=== PATIENT | male | born 1990 | race Caucasian/White ===

== ENCOUNTER 2022-09-10 08:03 | Inpatient (IN) | payer SELFPAY ==
[2022-09-10 08:04] VITALS: BP 154/111; PULSE 96; RESP 14; TEMP 36.1; O2SAT 97; BMI 42.2
--- NOTE | 2022-09-10 08:35 | RAD_ITS ---
STUDY: X-RAY - LEFT TIBIA AND FIBULA REASON FOR EXAM: Male, 32 years old. Cellulitis TECHNIQUE: 2 view(s) of the tibia and fibula were obtained. COMPARISON: None. FINDINGS: There is no evidence of fracture or dislocation. There are no significant degenerative changes. There are no radiodense foreign bodies. There is diffuse soft tissue swelling noted. There is no soft tissue air. RAD/Tibia & Fibula 2 Views IMPRESSION: No fracture or dislocation in the left tibia or fibula. Diffuse soft tissue swelling, consistent with cellulitis. No soft tissue air. Electronically Signed: Adithya Grider MD at 9:15 EDT ,
--- NOTE | 2022-09-10 08:38 | NURSING ---
NO OLD EKGS
[2022-09-10] MEDS: 0.9% Normal Saline 1,000 ML 1000 ML IV (08:43)
[2022-09-10] MEDS: Ondansetron 4 MG/2 ML Vial IV (08:44)
[2022-09-10] MEDS: Morphine 4 MG/ML Syringe IV (08:44)
--- NOTE | 2022-09-10 08:50 | RAD_ITS ---
STUDY: X-RAY CHEST REASON FOR EXAM: Male, 32 years old. Chest pain TECHNIQUE: Frontal view of the chest COMPARISON: None. FINDINGS: The lungs are clear. There are no pleural effusions. There is no pneumothorax. The heart is normal in size. The visualized osseous structures are within normal limits. RAD/Chest 1 View (Portable) IMPRESSION: No acute thoracic pathology. Electronically Signed: Adithya Grider MD at 9:15 EDT ,
[2022-09-10 08:57] LABS: Absolute Lymphocyte Count 0.89 X10^3/uL (0.83-4.51); Absolute Neutrophil Count 6.5 X10^3/uL (2.0-7.7); Basophil# 0.03 X10^3/uL; Basophil% 0.4 % (0-1); Eosinophil# 0.05 X10^3/uL; Eosinophils% 0.6 % (0-5); Hematocrit 43.8 % (40-54); Hemoglobin 15.5 g/dL (13.0-16.5); Lymphocyte # 0.89 X10^3/ul (0.83-4.51); Lymphocyte % 10.9 % (19-41); Mean Corp Hgb Conc 35.4 g/dL (32-36); Mean Corpuscular Hgb 31.4 pg (27.0-32.0); Mean Corpuscular Volume 88.8 fL (80-94); Mean Platelet Vol. 9.8 fl (6.2-12.0); Monocyte# 0.67 X10^3/uL; Monocyte% 8.2 % (0-10); NRBC Flagged by Analyzer 0 % (0-5); Neutrophil # 6.52 X10^3/uL (2.7-7.7); Neutrophil % 79.4 % (47-70); Platelet Count 200 K/mm3 (150-450); RBC Distribution Width CV 12.1 % (11.6-14.6); RBC Distribution Width SD 39.5 fl (35.1-43.9); Red Blood Count 4.93 M/mm3 (4.6-6.2); White Blood Count 8.2 K/mm3 (4.4-11.0)
[2022-09-10 09:13] LABS: Anion Gap 6 (5-15); BUN 6 mg/dL (7-18); BUN/Creat Ratio 6.6 RATIO (10-20); Calcium,Total 9.1 mg/dL (8.5-10.1); Chloride 101 mmol/L (98-107); Creatinine, Serum 0.91 mg/dL (0.70-1.30); EST Glomerular Filtration Rate 103 mL/min (>60); Est Glom Filt Rate - Afr Amer 124 mL/min (>60); Estimated Creatinine Clearance 113.79 ml/min; Glucose 113 mg/dL (74-106); Potassium 2.9 mmol/L (3.5-5.1); Sodium Level 134 mmol/L (136-145); Troponin-I HS (w/2H Reflex) 3 pg/mL (3.0-78.0)
[2022-09-10 09:21] LABS: Erythrocyte Sedimentation Rate 34 mm/hr (0-20)
--- NOTE | 2022-09-10 09:32 | NURSING ---
DR HERRERA FOR DR SAINZ
--- NOTE | 2022-09-10 09:33 | CT_ITS ---
HISTORY: infection. TECHNIQUE: Helically acquired images were obtained of the left lower extremity from the hip to the foot without after the intravenous administration of contrast. 2-D reformats were performed by the technologist. A radiation dose optimization technique was used for this scan. 1138 images. COMPARISON: XR same day. FINDINGS: BONES: No acute fracture. No cortical erosion to suggest osteomyelitis identified. Scattered small bone islands of the knee and ankle. JOINT SPACES: No dislocation. Preservation of the joint spaces. SOFT TISSUES: Mildly enlarged left groin lymph nodes measuring up to 1.3 x 2.3 cm, likely reactive. No subcutaneous emphysema or air in the deep fascial soft tissues. Venous varicosities noted. Mild subcutaneous edema of the knee with moderate subcutaneous edema and skin thickening extending to the leg, ankle, and dorsum of the foot. Mild ill-defined fluid measuring up to 9 mm x 4.4 cm in the posterior deep subcutaneous soft tissues without rim enhancement to suggest abscess. CT/Extremity Lower WITH Contrast IMPRESSION: Cellulitis of the left lower extremity as above. Electronically Signed: Chery Mendez MD at 11:33 EDT ,
--- NOTE | 2022-09-10 09:49 | EX.ED.DYSGE1 ---
HPI History of Present Illness Chief Complaint: Cellulitis Narrative Narrative: 32-year-old male with left lower leg cellulitis. He states he was seen at [facility] on the when he had an area of rash on the left posterior foot. At that time he had actually complained of some groin pain as well. He states that they tested him for syphilis, gonorrhea, chlamydia. He states he was also tested for HIV. He does not have any dysuria or urethral drainage. He just told them that he was having trouble making urine. He does step same thing to me except he states he is not eating and drinking much but he does not feel well. Patient states since then the rash has spread up his leg and it is almost circumferential now. There is very dark red area in the center of the tibia and then more light red around the back. He states is hard to walk and has been using crutches. He has not had a fever that he knows of. He does not remember any kind of wound that started other than this rash on his ankle. Denies any injury. No history of MRSA. He states he does not know if it is anything significant but has been feeling a little bit short of breath as well. Has some chest tightness as well. He thinks it might be anxiety over his leg but he is not sure. No cardiac history. He states that when he was at the other facility few days ago they did do a DVT study on his lower extremities and this was negative. No history of DVT or PE. [facility] Medical History no medical history Home Medications acetaminophen 325 mg tablet (Tylenol) 650 mg PO Q4H PRN Pain 09/10/22 [History Last Taken 09/09/22] ibuprofen 200 mg tablet 400 mg PO Q6H PRN Pain 09/10/22 [History Last Taken 09/07/22] Allergy/AdvReac Type Severity Reaction Status Date / Time No Known Allergies Allergy Verified 09/10/22 08:04 Social History Smoking Status: Current every day smoker tobacco type: cigarettes ROS ROS ED Constitutional Constitutional ED: Denies chills or fever(s) Eyes Eyes: Denies change in vision or other ENT ENT ED: Denies rhinorrhea or sore throat Cardiovascular Cardiovascular: Denies chest pain or palpitations Respiratory/Chest Respiratory/Chest: Reports dyspnea; Denies cough Gastrointestinal Gastrointestinal: Reports nausea Genitourinary Genitourinary ED: Denies dysuria Musculoskeletal Musculoskeletal: Denies arthralgias or back pain Integumentary Reports rash Neurologic Neurologic: Denies headache(s) Psychiatric Psychiatric: Denies anxiety EXAM Physical Exam Const Vital Signs: 09/10/22 08:04 09/10/22 08:35 09/10/22 10:00 Temperature 97 F L 97.8 F Temperature Source Temporal Oral Pulse Rate 96 70 Respiratory Rate 14 17 Blood Pressure 154/111 H 133/89 H Blood Pressure Mean 125 103 Pulse Ox 97 97 Oxygen Delivery Method Room Air Room Air Room Air Positive well nourished General Appearance ED: NAD HEENT Reports moist mucous membranes Chest Wall inspection of chest normal and palpation of chest normal Resp normal respiratory effort and clear to auscultation bilaterally Extremity Extremity Narrative: Deep red rash extending from the tibial region anteriorly in the ankle up to just inferior to the knee. There is deep rest raised vesicles. Extending laterally from this is red indurated tissue. There is increased warmth here. No crepitance. Neuro oriented x3 and CN's II-XII intact bilaterally Psych mental status grossly normal Skin Skin Narrative: As noted above MDM MDM MDM Narrative Medical decision making narrative: Patient presenting with cellulitis on the left leg. He is also stating that he is having some shortness of breath and tightness. He believes this is anxiety. No cardiac history. He had recent DVT studies which were negative. Differential includes pneumonia, ACS, anxiety. His lower extremity is nearly circumferential cellulitis so I think he will need to be admitted. I will obtain an EKG and high-sensitivity troponin to rule out ischemic causes. Chest x-ray to rule out pneumonia. CBC to assess white blood cell count. BMP to assess renal function and electrolytes. ESR and CRP inflammatory markers were also be obtained. X-ray of the left tibia was obtained. On my interpretation this shows diffuse soft tissue swelling without subcutaneous air. CBC does not show a leukocytosis. BMP shows normal renal function and potassium is low at 2.9 which will be repleted orally. ESR 34 and CRP 106. Wound culture was obtained. Patient is given vancomycin and Zosyn. Discussed with hospitalist for admission. She requested CT be done of the leg. This is ordered. Chest x-ray on my interpretation shows no acute cardiopulmonary process. Radiologist are persistent agrees. High-sensitivity troponin is 3. I do not believe he needs a delta troponin. CT of the lower extremity shows cellulitis. Patient admitted in stable condition. Impression: 1. Chest pain 2. Shortness of breath 3. Left lower extremity cellulitis Lab Data Attestation: I reviewed the patient's lab results. Labs: Laboratory Results - last 24 hr 09/10/22 09/10/22 08:45 08:45 WBC 8.2 RBC 4.93 Hgb 15.5 Hct 43.8 MCV 88.8 MCH 31.4 MCHC 35.4 RDW Std Deviation 39.5 RDW Coeff of Bere 12.1 Plt Count 200 MPV 9.8 Immature Gran % (Auto) 0.500 Neut % (Auto) 79.4 H Lymph % (Auto) 10.9 L [place] % (Auto) 8.2 Eos % (Auto) 0.6 Baso % (Auto) 0.4 Absolute Neuts (auto) 6.5 Absolute Lymphs (auto) 0.89 Nucleated RBC % 0 ESR 34 H Sodium 134 L Potassium 2.9 L Chloride 101 Carbon Dioxide 27.0 Anion Gap 6 BUN 6 L Creatinine 0.91 Estim Creat Clear Calc 113.79 Est GFR (MDRD) Af Amer 124 Est GFR (MDRD) Non-Af 103 BUN/Creatinine Ratio 6.6 L Glucose 113 H Calcium 9.1 Troponin I High Sens 3 C-React Prot Ext Range 106.00 H Radiography Diagnostic Testing: Clinical Impression(s) from Imaging Studies Tibia/Fibula X-Ray 09/10/22 08:35 IMPRESSION: No fracture or dislocation in the left tibia or fibula. Diffuse soft tissue swelling, consistent with cellulitis. No soft tissue air. Electronically Signed: Adithya Grider MD at 9:15 EDT , Chest X-Ray 09/10/22 08:50 IMPRESSION: No acute thoracic pathology. Electronically Signed: Adithya Grider MD at 9:15 EDT , Lower Extremity CT 09/10/22 09:33 IMPRESSION: Cellulitis of the left lower extremity as above. Electronically Signed: Chery Mendez MD at 11:33 EDT , Discharge Plan Disposition Disposition: Acute Care Hospital [facility] Discharge Date/Time: 09/10/22 11:11
[2022-09-10 10:00] VITALS: BP 133/89; PULSE 70; RESP 17; TEMP 36.6; O2SAT 97
[2022-09-10 10:53] LABS: Reflex Troponin-HS? (from REC) Y
[2022-09-10 11:07] VITALS: BP 136/104; PULSE 87; RESP 20; TEMP 36.6; O2SAT 98
[2022-09-10 11:29] LABS: Troponin-I HS 4 pg/mL (3.0-78.0)
[2022-09-10 11:33] VITALS: BMI 42.3
--- NOTE | 2022-09-10 11:56 | HP.PCM.HOS_ITS ---
HPI - General General Date of Admission: 09/10/22 Date of Service: 09/10/22 Chief Complaint: Left lower leg pain and swelling HPI Narrative SHADY FLORES, is a 32 M who presented to the emergency department at [facility] on 09/10/2022 with a chief complaint of left lower extremity redness and swelling that is worsening. Patient states symptoms started last with very mild erythema in his leg that was minimally distributed. He went to an urgent care with [facility] up in the [facility] and they felt that that was a rash so they started topical steroids. This progressively worsened since that time and become more diffusely spread with worsening swelling, pain, and erythema. It started in his distal leg and is now spread up into but just above his knee. He had some associated chills on and Friday but these have since resolved. He currently is experiencing some intermittent nausea and decreased p.o. intake due to this along with pain in his left lower extremity. The pain is so significant at this point he is using crutches for ambulation. The patient states he has had previous cellulitis in this leg that was not quite as severe as it is now but did require ambulation with crutches in 2018. He does not remember the exact circumstances of that situation. Vital signs on presentation showed temperature of 97.8, blood pressure 136/104, heart rate 87, respiratory 20, oxygen saturations 98% on room air. His CBC was unremarkable however his differential showed a left shift with a 79.4% neutrophilia. His sed rate was elevated at 34. CRP was 106. Sodium was slightly low at 134. His potassium was 2.9. Renal function is unremarkable. Glucose was slightly elevated 113 and the patient does not have any history of diabetes. Cardiac enzymes were cycled and were unremarkable. X-ray of the distal left lower extremity shows no fracture dislocation but did demonstrate soft tissue swelling consistent with cellulitis but no soft tissue air. CT of the left lower extremity showed inguinal lymphadenopathy that is suspected to be reactive along with mild subcutaneous edema at the knee with moderate subcutaneous edema and skin thickening in the distal leg down to the dorsum of the foot. There is also mild L identified fluid measuring 9 mm x 4.4 cm in the posterior deep subcutaneous soft tissues without rim-enhancing to suggest abscess. This imaging was reviewed with general surgery and they feel this is inflammatory fluid collection and not abscess and we will continue to monitor this clinically. Chest x-ray was unremarkable. In the emergency department blood cultures were obtained and a culture of one of the blisters was obtained. He was started on vancomycin and Zosyn and admitted to the medical floor. [facility] Medical History Anxiety Depression GERD (gastroesophageal reflux disease) Migraines Medical History no medical history Home Medications acetaminophen 325 mg tablet (Tylenol) 650 mg PO Q4H PRN Pain 09/10/22 [History Last Taken 09/09/22] ibuprofen 200 mg tablet 400 mg PO Q6H PRN Pain 09/10/22 [History Last Taken 09/07/22] Allergy/AdvReac Type Severity Reaction Status Date / Time No Known Allergies Allergy Verified 09/10/22 08:04 no significant family history no surgical history Social History (Updated 09/10/22 @ 12:[address] Shiloh Billings DO) current occupation: Patient is currently unemployed and recently moved to the area Smoking Status: Current every day smoker tobacco type: cigarettes alcohol intake: never substance use type: does not use ROS Constitutional Constitutional: Reports chills and malaise; Denies anorexia, change in weight, fatigue, fever(s), night sweats, weakness or other Eyes Eyes: Denies blurry vision, change in eye color, change in vision, discharge from eye(s), double vision, erythema, eye pain, loss of vision or other ENT HEENT: Denies abnormal hearing, dysphagia, ear pain, epistaxis, headache(s), hearing loss, nasal congestion, nasal discharge, post nasal drip, sinus pressure, sore throat or other Cardiovascular Cardiovascular: Denies chest pain, claudication, dyspnea on exertion, edema, lightheadedness, orthopnea, palpitations, paroxysmal nocturnal dyspnea, rapid heart rate, syncope or other Respiratory/Chest Respiratory/Chest: Denies cough, dyspnea, excessive phlegm production, hemoptysis, productive cough, shortness of breath at rest, shortness of breath with exertion, wheezing or other Gastrointestinal Gastrointestinal: Reports nausea and other Details: Decreased appetite ; Denies abdominal pain, coffee ground emesis, constipation, diarrhea, dyspepsia, hematemesis, hematochezia, loose stools, melena or vomiting Genitourinary Genitourinary: Denies burning urination, difficulty urinating, dysuria, hematuria, nocturia, urinary frequency, urinary hesitancy, urinary incontinence, urinary urgency or other Musculoskeletal Musculoskeletal: Reports other Details: Leg pain and swelling left Neurologic Neurologic: Reports abnormal gait; Denies abnormal speech, confusion, disequilibrium, dizziness, focal weakness, headache(s), numbness, paresthesias, seizure-like activity, seizures, syncope, tingling, tremor(s) or other Psychiatric Psychiatric: Denies anxiety, depression, homicidal ideation, suicidal ideation or other Endocrine Endocrinology: Denies change in body appearance, cold intolerance, excessive sweating, heat intolerance, polydipsia, polyuria or other Hematologic/Lymphatic Hematologic/Lymphatic: Denies anemia, easy bleeding, easy bruising, lymphade nopathy or other Allergic/Immunologic Allergic/Immunologic: Denies rhinitis, hives, eczemia, asthma or other Vital Signs Vital Signs Vital Signs: 09/10/22 08:04 09/10/22 08:35 09/10/22 10:00 Temperature 97 F L 97.8 F Temperature Source Temporal Oral Pulse Rate 96 70 Respiratory Rate 14 17 Blood Pressure 154/111 H 133/89 H Blood Pressure Mean 125 103 Pulse Ox 97 97 Oxygen Delivery Method Room Air Room Air Room Air 09/10/22 11:07 Temperature 97.8 F Temperature Source Oral Pulse Rate 87 Respiratory Rate 20 H Blood Pressure 136/104 H Blood Pressure Mean 114 Pulse Ox 98 Oxygen Delivery Method Room Air Weight Weight: 126.354 kg Body Mass Index (BMI) 42.3 Physical Exam Const alert, oriented x3, no apparent distress and well nourished Constitutional Narrative: Morbidly obese, lower middle-aged, white male, sitting up in a bed in the emergency department, appears comfortable and nontoxic General Appearance: cooperative HEENT normocephalic, head/scalp atraumatic and hearing grossly normal bilaterally HEENT Narrative: Dentition is fair, Mallampati is 2-3, no thrush Resp normal respiratory effort, no retractions, no use of accessory muscles and clear to auscultation bilaterally Cardio regular rate, regular rhythm, S1 normal heart sound, S2 normal heart sound, no murmurs, no rub, no gallops and no clicks GI normal to inspection, nondistended, normoactive bowel sounds, soft to palpation and non-tender Extremity Extremity Narrative: Left lower extremity with significant edema and blistering with erythema as noted below, no cyanosis or clubbing, bilateral pedal pulses are 2+ and sensation is intact Skin Skin Narrative: Left lower extremity with blistering and seeping of serous fluid, erythema that extends from his ankle to just above his knee-area outlined with purple marker for demarcation Neuro oriented x3, CN's II-XII intact bilaterally, moves all extremities and no focal motor deficits Speech: speech normal Psych affect normal Psych Narrative: Very pleasant Results Lab / Micro Data Attestation: I reviewed the patient's lab results. Result Diagrams: 09/10/22 08:45 09/10/22 08:45 Labs: Laboratory Results - last 24 hr 09/10/22 08:45: WBC 8.2, RBC 4.93, Hgb 15.5, Hct 43.8, MCV 88.8, MCH 31.4, MCHC 35.4, RDW Std Deviation 39.5, RDW Coeff of Bere 12.1, Plt Count 200, MPV 9.8, Immature Gran % (Auto) 0.500, Neut % (Auto) 79.4 H, Lymph % (Auto) 10.9 L, [place] % (Auto) 8.2, Eos % (Auto) 0.6, Baso % (Auto) 0.4, Absolute Neuts (auto) 6.5, Absolute Lymphs (auto) 0.89, Nucleated RBC % 0, ESR 34 H 09/10/22 08:45: Sodium 134 L, Potassium 2.9 L, Chloride 101, Carbon Dioxide 27.0, Anion Gap 6, BUN 6 L, Creatinine 0.91, Estim Creat Clear Calc 113.79, Est GFR (MDRD) Af Amer 124, Est GFR (MDRD) Non-Af 103, BUN/Creatinine Ratio 6.6 L, Glucose 113 H, Calcium 9.1, Troponin I High Sens 3, C-React Prot Ext Range 106.00 H 09/10/22 11:00: Troponin I High Sens 4 Radiology Impression Tibia/Fibula X-Ray 09/10/22 08:35 IMPRESSION: No fracture or dislocation in the left tibia or fibula. Diffuse soft tissue swelling, consistent with cellulitis. No soft tissue air. Electronically Signed: Adihtya Grider MD at 9:15 EDT , Chest X-Ray 09/10/22 08:50 IMPRESSION: No acute thoracic pathology. Electronically Signed: Adithya Grider MD at 9:15 EDT , Lower Extremity CT 09/10/22 09:33 IMPRESSION: Cellulitis of the left lower extremity as above. Electronically Signed: Chery Mendez MD at 11:33 EDT , Assessment & Plan Assessment/Plan (1) Cellulitis of right leg: (2) Hypokalemia: (3) Hyperglycemia: PLAN: Plan Left lower extremity cellulitis -Second episode with previous being in 2018 -Appears the nidus is wounds on the plantar aspect of his foot -We will cover MRSA and Pseudomonas with vancomycin and Zosyn given distribution and severity -CT scan shows no fluid collection concerning for abscess --> images reviewed with general surgery and they think that this is all inflammation -Wound care consulted -Elevate left lower extremity as able -Culture of blister pending -Blood cultures are pending -ESR mildly elevated sed rate markedly elevated Hypokalemia -Patient was profoundly hypokalemic with a potassium of 2.9 -If 60 mill equivalents p.o. x1 dose -Recheck in a.m. -Check a.m. magnesium level as well Hyperglycemia -Blood sugars mildly elevated on presentation at 113 -Check hemoglobin A1c to rule out diabetes with morbid obesity History of GERD -Patient takes no patients at baseline for this Morbid obesity -BMI is 42.4 -Complicates treatment, prognosis, outcomes Nicotine patch -Recommend cessation -Nicotine patch available DVT prophylaxis -Lovenox 40 mg twice daily CODE STATUS -Full code Charges/Coding Visit Charges Inpatient E&M: 14614 Init Hosp L2
[2022-09-10 12:00] VITALS: BP 126/86; PULSE 57; RESP 16; TEMP 36.6; O2SAT 100
--- NOTE | 2022-09-10 12:57 | PHA.PHARE_ITS ---
Consult Pharmacy has been consulted to manage selected antiobiotic: Vancomycin Type of Consult: New start Suspected Infection: Skin/Soft tissue Prior Doses of Antibiotics Received/Current Regimen: vanc 2000mg IV x1 was given in E.R. starting at 11:07 today Labs: Sodium 134 mmol/L (136-145) L 09/10/22 08:45 Potassium 2.9 mmol/L (3.5-5.1) L 09/10/22 08:45 Chloride 101 mmol/L (98-107) 09/10/22 08:45 Carbon Dioxide 27.0 mmol/L (21.0-32.0) 09/10/22 08:45 Anion Gap 6 (5-15) 09/10/22 08:45 BUN 6 mg/dL (7-18) L 09/10/22 08:45 Creatinine 0.91 mg/dL (0.70-1.30) 09/10/22 08:45 Est GFR (MDRD) Af Amer 124 mL/min (>60) 09/10/22 08:45 Est GFR (MDRD) Non-Af 103 mL/min (>60) 09/10/22 08:45 BUN/Creatinine Ratio 6.6 RATIO (10-20) L 09/10/22 08:45 Glucose 113 mg/dL (74-106) H 09/10/22 08:45 Weight used for dosin.4 kg Estimated Creatinine Clearance: >100ml/min Goal Trough: 15-20 mcg/mL Pharmacy Plan for Drug Dosing: Starting 8 hours after the E.R. dose, will continue with vanc 1500mg IV q8h per [facility] dosing protocol. Check a trough level before the 4th total dose tomorrow morning. Pharmacy Service will continue to monitor and adjust dosing as required. Follow-Up Labs: Trough Vancomycin Labs to be done on [date and time ordered]: 09/11/22 10:30
[2022-09-10] MEDS: Potassium Chloride Oral Tablet 20 MEQ 60 MEQ PO (13:20)
[2022-09-10] MEDS: Acetaminophen 500 MG Tablet 1000 MG PO ×2 (13:20→21:59)
[2022-09-10 16:00] VITALS: BP 129/89; PULSE 75; RESP 16; TEMP 36.8; O2SAT 97
[2022-09-10 16:07] LABS: M R Staph aureus DNA By PCR Negative (Negative); Probe Check PASS; Specimen Processing Control PASS
[2022-09-10 21:51] VITALS: BP 130/90; PULSE 72; RESP 16; TEMP 36.2; O2SAT 98
[2022-09-10] MEDS: Enoxaparin 40 MG/0.4 ML Syringe SC (21:58)
[2022-09-11 03:30] VITALS: BP 120/80; PULSE 53; RESP 16; TEMP 36.4; O2SAT 97
[2022-09-11 06:40] LABS: Absolute Lymphocyte Count 1.47 X10^3/uL (0.83-4.51); Absolute Neutrophil Count 2.5 X10^3/uL (2.0-7.7); Basophil# 0.03 X10^3/uL; Basophil% 0.7 % (0-1); Eosinophil# 0.09 X10^3/uL; Hematocrit 42.1 % (40-54); Hemoglobin 14.5 g/dL (13.0-16.5); Lymphocyte # 1.47 X10^3/ul (0.83-4.51); Mean Corp Hgb Conc 34.4 g/dL (32-36); Mean Corpuscular Hgb 31.9 pg (27.0-32.0); Mean Corpuscular Volume 92.7 fL (80-94); Mean Platelet Vol. 9.7 fl (6.2-12.0); Monocyte# 0.41 X10^3/uL; Monocyte% 8.9 % (0-10); NRBC Flagged by Analyzer 0 % (0-5); Neutrophil # 2.54 X10^3/uL (2.7-7.7); Neutrophil % 55.3 % (47-70); Platelet Count 178 K/mm3 (150-450); RBC Distribution Width CV 12.6 % (11.6-14.6); Red Blood Count 4.54 M/mm3 (4.6-6.2); White Blood Count 4.6 K/mm3 (4.4-11.0)
[2022-09-11] MEDS: Acetaminophen 500 MG Tablet 1000 MG PO ×3 (06:40→21:59)
[2022-09-11 07:20] LABS: ALB/GLOB Ratio 0.7 RATIO (0.9-2.4); AST(SGOT) 36 U/L (15-37); Alanine Aminotransfer ALT/SGPT 44 U/L (16-61); Albumin, Serum 2.7 g/dL (3.2-5.0); Alkaline Phosphatase 44 U/L (45-117); Anion Gap 5 (5-15); BUN 8 mg/dL (7-18); BUN/Creat Ratio 8.9 RATIO (10-20); Calcium,Total 8.4 mg/dL (8.5-10.1); Chloride 107 mmol/L (98-107); EST Glomerular Filtration Rate 104 mL/min (>60); Est Glom Filt Rate - Afr Amer 126 mL/min (>60); Estimated Creatinine Clearance 115.06 ml/min; Globulin 3.8 g/dL (2.2-4.2); Glucose 84 mg/dL (74-106); Magnesium 2.5 mg/dL (1.6-2.6); Phosphorus 3.2 mg/dL (2.5-4.9); Potassium 3.4 mmol/L (3.5-5.1); Protein, Total 6.5 g/dL (6.4-8.2); Sodium Level 139 mmol/L (136-145); Thyroid Stim Hormone (TSH) 3.49 uIU/mL (0.358-3.74)
[2022-09-11 08:00] VITALS: BP 126/88; PULSE 64; RESP 16; TEMP 36.3; O2SAT 97
[2022-09-11] MEDS: Potassium Chloride Oral Tablet 20 MEQ 40 MEQ PO (08:02)
[2022-09-11] MEDS: Enoxaparin 40 MG/0.4 ML Syringe SC ×2 (08:02→21:59)
--- NOTE | 2022-09-11 08:20 | WOUNDNOTE ---
wound photo: left lower leg
--- NOTE | 2022-09-11 08:20 | WOUNDNOTE ---
wound photo: left lower leg
--- NOTE | 2022-09-11 08:53 | CASEMGMT ---
Social Work SW met w/pt due to self pay status and triggering SDOH. SW gave pt resources for food including food baker and whire card. SW also gave pt self pay resources including [facility] assist, Medicaid application, [place] [employer] information, [employer] and prescription assist program. Pt declined referral to [employer] to assist w/Medicaid application, will look into it himself. SW inquired if he has ever applied before, pt states he has never been unemployed long enough to qualify. SW remains available for any other resources needed. FERNANDA Bella
--- NOTE | 2022-09-11 12:36 | PCM.PN.HOSP ---
Reason for Visit Reason for Visit: Left lower extremity cellulitis Subjective Subjective Patient states he feels mildly better. Decreased pain overall when trying to ambulate. Erythema is less and he feels that the swelling is gone down a bit. No issues overnight. Objective Data Objective Data Vital Signs: Vital Signs Temp Pulse Resp BP Pulse Ox O2 Del Method 97.3 F L 64 16 126/88 H 97 Room Air 09/11/22 08:00 09/11/22 08:00 09/11/22 08:00 09/11/22 08:00 09/11/22 08:00 09/11/22 08:00 Oxygen Delivery Method Room Air Weight: 126.354 kg Body Mass Index (BMI) 42.3 Intake & Output: Intake and Output for Last 24 Hours 09/09/22 09/10/22 09/11/22 23:59 23:59 23:59 Intake Total 3170 / 3170 580 / 580 Balance 3170 / 3170 580 / 580 Lab / Micro Data Result Diagrams: 09/11/22 06:20 09/11/22 06:20 Labs: Laboratory Results - last 24 hr 09/10/22 08:45: Hemoglobin A1c 5.0 09/10/22 13:25: MRSA (PCR) Negative 09/11/22 06:20: WBC 4.6, RBC 4.54 L, Hgb 14.5, Hct 42.1, MCV 92.7, MCH 31.9, MCHC 34.4, RDW Std Deviation 43.0, RDW Coeff of Bere 12.6, Plt Count 178, MPV 9.7, Immature Gran % (Auto) 1.100 H, Neut % (Auto) 55.3, Lymph % (Auto) 32.0, [place] % (Auto) 8.9, Eos % (Auto) 2.0, Baso % (Auto) 0.7, Absolute Neuts (auto) 2.5, Absolute Lymphs (auto) 1.47, Nucleated RBC % 0 09/11/22 06:20: Sodium 139, Potassium 3.4 L, Chloride 107, Carbon Dioxide 27.0, Anion Gap 5, BUN 8, Creatinine 0.90, Estim Creat Clear Calc 115.06, Est GFR (MDRD) Af Amer 126, Est GFR (MDRD) Non-Af 104, BUN/Creatinine Ratio 8.9 L, Glucose 84, Calcium 8.4 L, Phosphorus 3.2, Magnesium 2.5, Total Bilirubin 0.40, AST 36, ALT 44, Alkaline Phosphatase 44 L, Total Protein 6.5, Albumin 2.7 L, Globulin 3.8, Albumin/Globulin Ratio 0.7 L, TSH 3.49 Micro: Microbiology 09/10/22 10:05 Discharge - No Site/Description Given Gram Stain - Final Radiography Diagnostic Testing: Radiology Impression Lower Extremity CT 09/10/22 09:33 IMPRESSION: Cellulitis of the left lower extremity as above. Electronically Signed: Chery Mendez MD at 11:33 EDT , Physical Exam Const alert, oriented x3, no apparent distress and well nourished Constitutional Narrative: Morbidly obese, lower middle-aged, white male, sitting up in bed, watching television, appears comfortable and nontoxic General Appearance: cooperative HEENT normocephalic, head/scalp atraumatic and hearing grossly normal bilaterally HEENT Narrative: No thrush, Mallampati 3 Resp normal respiratory effort, no retractions, no use of accessory muscles and clear to auscultation bilaterally Cardio regular rate, regular rhythm, S1 normal heart sound, S2 normal heart sound, no murmurs, no rub, no gallops and no clicks GI normal to inspection, nondistended, normoactive bowel sounds, soft to palpation and non-tender Extremity Extremity Narrative: Lower extremity edema has improved some, imaging reviewed that was performed by wound care-erythema is much improved overall, edema is slowly improving, patient is having decreased pain with palpation, no cyanosis or clubbing, still with some serosanguineous drainage Neuro oriented x3, moves all extremities and no focal motor deficits Speech: speech normal Psych affect normal Psych Narrative: Very pleasant Assessment & Plan Assessment/Plan (1) Cellulitis of right leg: (2) Hypokalemia: (3) Hyperglycemia: PLAN: Plan Left lower extremity cellulitis -Second episode with previous being in 2018 -Appears the nidus is wounds on the plantar aspect of his foot -Left shift has resolved -Continue vancomycin and Zosyn for now -MRSA PCR is negative and if cultures are negative will discontinue vancomycin -Anticipate transition to Levaquin at discharge -Patient will need assist with cost and case management is following -CT scan shows no fluid collection concerning for abscess --> images reviewed with general surgery and they think that this is all inflammation -Wound care following-appreciate care -Elevate left lower extremity as able -Culture of blister remain pending -Blood cultures are remain pending -ESR mildly elevated sed rate markedly elevated Hypokalemia -Patient was profoundly hypokalemic with a potassium of 2.9--> improved and up to 3.4 today -Redose potassium 40 mill equivalents today -Recheck in a.m. -Magnesium level was within normal limits Hyperglycemia -Patient is not diabetic as hemoglobin A1c was found to be 5.0 -A.m. fasting blood sugar was 84 History of GERD -Patient takes no patients at baseline for this Morbid obesity -BMI is 42.4 -Complicates treatment, prognosis, outcomes Nicotine patch -Recommend cessation -Nicotine patch available DVT prophylaxis -Lovenox 40 mg twice daily CODE STATUS -Full code Disposition: -Anticipate discharge in the next 24 to 48 hours depending on clinical progress. Will plan on discharging patient with Levaquin 750 mg daily for 7 days Charges/Coding Visit Charges Inpatient E&M: 81978 Subs Hosp L2
[2022-09-11 14:00] VITALS: BP 123/81; PULSE 72; RESP 16; TEMP 36.7; O2SAT 95
--- NOTE | 2022-09-11 14:44 | CASEMGMT ---
SHELL LEVI Assessment: Face to Face with pt for initial transition planning/care coordination assessment. SHELL LEVI introduced self and role at [facility], pt voices understanding and consents to assessment. Pt is A/O x4 and answers all questions appropriately at this time. Pt sitting up in bed in no distress. Care providers, pharmacy, and demographics verified/updated. Admitting Dx: LLE Cellulitis PCP:Pt states he has a PCP in [place] but is looking for a PCP locally. Provided pt with a local healthcare directory pamphlet. Specialists:Pt denies Preferred Pharmacy: [facility] Insurance: Self Pay Prescription Benefit: no LNOK: Tanisha Dodsononer, friend Living Arrangements: Pt lives with Tanisha, her and son in the basement of a single story home with 3 steps to enter. Pt denies difficulty with the stairs. Pt reports he is I in ADL's and denies concerns at home. Transportation: Pt drives self and denies concerns with transportation. DME/HHC/SNF: Pt has crutches that he is currently using, denies hx of HHC or SNF stays. Pt states no concerns with going home at time of dc. Pt states no further concerns/needs. CM to follow. Advised pt to ask CM if any further question/concerns/needs arise, voices understanding. Pt Goal: Home Plan: Home
--- NOTE | 2022-09-11 15:44 | NURSING ---
OPTIONS OFFERED TO PT. 10MG TORADOL GIVEN AND SHE IS TO HAVE ANOTHER DOSE IN 6 HOURS. A)SHE CAN GO HOME AND DR JACOBS WILL CALL 2ND DOSE IN TO PHARMACY FOR HER TO TAKE AT HOME, B)SHE CAN STAY HERE, HAVE 2ND DOSE HERE AND STILL GO HOME, OR C)STAY ANOTHER NIGHT AND GO HOME IN THE MORNING. ENCOURAGED PT TO GIVE MED APPROX AN HOUR TO MONITOR FOR EFFECTIVENESS AND THEN DECIDE. SPOUSE VOICED CONCERNS OF PT GOING HOME WHEN PAIN IS NOT CONTROLLED.
--- NOTE | 2022-09-11 15:48 | PCM.RX.CS ---
Consult Pharmacy has been consulted to manage selected antiobiotic: Vancomycin Type of Consult: Follow-up Suspected Infection: Skin/Soft tissue Prior Doses of Antibiotics Received/Current Regimen: 09/10/22 @ 1107 09/10/22 @ 1920 09/11/22 @ 0640 Labs: Sodium 139 mmol/L (136-145) 09/11/22 06:20 Potassium 3.4 mmol/L (3.5-5.1) L 09/11/22 06:20 Chloride 107 mmol/L (98-107) 09/11/22 06:20 Carbon Dioxide 27.0 mmol/L (21.0-32.0) 09/11/22 06:20 Anion Gap 5 (5-15) 09/11/22 06:20 BUN 8 mg/dL (7-18) 09/11/22 06:20 Creatinine 0.90 mg/dL (0.70-1.30) 09/11/22 06:20 Est GFR (MDRD) Af Amer 126 mL/min (>60) 09/11/22 06:20 Est GFR (MDRD) Non-Af 104 mL/min (>60) 09/11/22 06:20 BUN/Creatinine Ratio 8.9 RATIO (10-20) L 09/11/22 06:20 Glucose 84 mg/dL (74-106) 09/11/22 06:20 Vancomycin Trough 18.0 ug/mL (5.0-15.0) H 09/11/22 14:20 Microbiology: Microbiology 09/10/22 10:05 Discharge - No Site/Description Given Gram Stain - Final Weight used for dosin kg Estimated Creatinine Clearance: 115 Goal Trough: 15-20 mcg/mL Pharmacy Plan for Drug Dosing: Vancomycin 1500mg every 8 hours Pharmacy Service will continue to monitor and adjust dosing as required. Follow-Up Labs: Trough Vancomycin Labs to be done on [date and time ordered]: 09/12/22/ @ 1400
[2022-09-11 20:13] VITALS: BP 131/76; PULSE 65; RESP 16; TEMP 36.7; O2SAT 97
[2022-09-12 03:00] VITALS: BP 114/74; PULSE 76; RESP 16; TEMP 36.1; O2SAT 99
[2022-09-12] MEDS: oxyCODONE 5 MG Tablet PO (04:04)
[2022-09-12] MEDS: Acetaminophen 500 MG Tablet 1000 MG PO (05:54)
[2022-09-12 07:03] LABS: Anion Gap 4 (5-15); BUN 8 mg/dL (7-18); BUN/Creat Ratio 10.4 RATIO (10-20); Calcium,Total 8.4 mg/dL (8.5-10.1); Chloride 112 mmol/L (98-107); Creatinine, Serum 0.77 mg/dL (0.70-1.30); EST Glomerular Filtration Rate 126 mL/min (>60); Est Glom Filt Rate - Afr Amer 152 mL/min (>60); Estimated Creatinine Clearance 134.48 ml/min; Glucose 86 mg/dL (74-106); Potassium 3.9 mmol/L (3.5-5.1); Sodium Level 140 mmol/L (136-145)
[2022-09-12 08:30] VITALS: BP 149/108; PULSE 65; RESP 18; TEMP 36.2; O2SAT 99
[2022-09-12] MEDS: Enoxaparin 40 MG/0.4 ML Syringe SC (08:34)
--- NOTE | 2022-09-12 08:34 | WOUNDNOTE ---
In to reassess the LLE. patient denies fever or chills though the night. removed the ABHIJIT wrap. there was still a moderate amount of serous drainage noted on the old dressings. the blistered areas remains unchanged. no increase in redness noted. edema is slightly improved today. will leave dressing off until Dr Billings assesses patient, and this nurse will reapply the dressing. pt sitting up in bed eating breakfast at this time. denies further needs.
[2022-09-12] MEDS: 0.9% Saline Lock 10 ML Syringe IV (08:37)
[2022-09-12] MEDS: Ketorolac 15 MG/ML Vial IV (08:37)
--- NOTE | 2022-09-12 09:45 | CASEMGMT ---
RN CM: This RN CM met with pt at bedside. Discussed discharge needs including PO antibiotic. Relayed potential cost of medication of $15-17 but will confirm once final script has been sent and processed by the pharmacy. Explained to pt that hospital assistance program can be accessed once a year. Pt expressed understanding and stated he may be able to get this amount covered but will need to discuss with his friend. Call placed to [facility] retail pharmacy and discussed. Final amount will be called to this RN CM and will collaborate with pt on resources. More Thompson RN CM
--- NOTE | 2022-09-12 10:59 | PCM.DC.SUM ---
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 Routine Comment: Reason for Consult:: cellulitis Reason For Visit: LLE CELLULITIS Diagnosis Discharge Diagnosis (1) Cellulitis of right leg: Status: Acute Code(s): L03.115 - Cellulitis of right lower limb (2) Hypokalemia: Status: Acute Code(s): E87.6 - Hypokalemia (3) Hyperglycemia: Status: Acute Code(s): R73.9 - Hyperglycemia, unspecified Medications at Discharge Home Medications acetaminophen 325 mg tablet (Tylenol) 650 mg PO Q4H PRN Pain 09/10/22 ibuprofen 200 mg tablet 400 mg PO Q6H PRN Pain 09/10/22 levofloxacin 750 mg tablet 750 mg PO Q24H #7 tabs 09/12/22 Hospital Course Operations None Procedures - (X-ray left tibia/fibula/chest x-ray/lower extremity CT scan) Summary of Care Provided Minutes Spent on Discharge: 37 Hospital Course: SHADY FLORES, is a 32 M who presented to the emergency department at [facility] on 09/10/2022 with a chief complaint of left lower extremity redness and swelling that is worsening.? Patient stated symptoms started last with very mild erythema in his leg that was minimally distributed.? He went to an urgent care with [facility] up in the [facility] ([place]) and they felt that that was a rash so they started topical steroids.? It progressively worsened since that time and become more diffusely spread with worsening swelling, pain, and erythema.? It started in his distal leg and spread up his leg just proximal to his knee.? He had some associated chills on and Friday but those had since resolved at presentation.? He was experiencing some intermittent nausea and decreased p.o. intake due to this along with pain in his left lower extremity on admission but this has since resolved as well.? The pain is so significant that he was using crutches for ambulation.? The patient stated he had previous cellulitis in this leg that was not quite as severe but did require ambulation with crutches in 2018.? He does not remember the exact circumstances of that situation. Vital signs on presentation showed temperature of 97.8, blood pressure 136/104, heart rate 87, respiratory 20, oxygen saturations 98% on room air.? His CBC was unremarkable however his differential showed a left shift with a 79.4% neutrophilia.? His sed rate was elevated at 34.? CRP was 106.? Sodium was slightly low at 134.? His potassium was 2.9.? Renal function is unremarkable.? Glucose was slightly elevated 113 and the patient does not have any history of diabetes.? Cardiac enzymes were cycled and were unremarkable.? X-ray of the distal left lower extremity shows no fracture dislocation but did demonstrate soft tissue swelling consistent with cellulitis but no soft tissue air.? CT of the left lower extremity showed inguinal lymphadenopathy that is suspected to be reactive along with mild subcutaneous edema at the knee with moderate subcutaneous edema and skin thickening in the distal leg down to the dorsum of the foot.? There is also mild L identified fluid measuring 9 mm x 4.4 cm in the posterior deep subcutaneous soft tissues without rim-enhancing to suggest abscess.? This imaging was reviewed with general surgery and they feel this is inflammatory fluid collection and not abscess and we will continue to monitor this clinically.? Chest x-ray was unremarkable. Patient was admitted to the medical floor and placed on broad-spectrum IV antibiotics with vancomycin and Zosyn to cover MRSA and Pseudomonas given the fact that the initial wound was on his foot. MRSA PCR was performed and found to be negative. Wound care was consulted and helped with dressing and compression. Overall the patient improved significantly during his hospital course on broad-spectrum antibiotics. His swelling and erythema reduced and his pain was significantly improved. He still was requiring some intermittent crutches however he had not kept his foot up much prior to coming to the hospital as he was helping somebody move. At this time we will discontinue IV antibiotics and transition to Levaquin 750 mg daily for another 7 days to complete antibiotic course and we should be able to discharge the patient home in stable condition. The patient stated that he was feeling better and was anxious to go home if possible. A follow-up appointment was made in the wound center for early next week to be reevaluated. We did urge the patient to follow-up with [facility] in clinic after discharge and information with regards to his hospitalization was sent. Again, he was discharged home in stable condition on 09/12/2022 instructed to complete a course of Levaquin. Discharge diagnoses: Left lower extremity cellulitis-improving Hypokalemia-resolved Hyperglycemia-resolved GERD Morbid obesity Tobacco abuse Physical Exam Const alert, oriented x3, no apparent distress and well nourished Constitutional Narrative: Morbidly obese, lower middle-aged, white male, sitting up in bed, watching television, appears comfortable and nontoxic General Appearance: cooperative, comfortable, well kempt and well developed Orientation / Consciousness: awake, oriented to person, oriented to place and oriented to time Exam Limitations: no limitations Nutritional Appearance: morbidly obese HEENT normocephalic, head/scalp atraumatic and hearing grossly normal bilaterally HEENT Narrative: Mallampati 3, no thrush Eyes PERRL, EOMs intact bilaterally and conjunctivae normal Eyes Narrative: No scleral icterus Neck no lymphadenopathy and supple Neck Narrative: Trachea midline, no thyroid enlargement Resp normal respiratory effort, no retractions, no use of accessory muscles and clear to auscultation bilaterally Cardio regular rate, regular rhythm, S1 normal heart sound, S2 normal heart sound, no murmurs, no rub, no gallops and no clicks GI normal to inspection, nondistended, normoactive bowel sounds, soft to palpation and non-tender Extremity Extremity Narrative: Reduction in lower extremity edema on the left side, erythema has significantly retracted from initial outline area performed on presentation, less blistering, severe erythematous area seems to be retracting in size as well but I suspect will take time to completely resolve, no clubbing or cyanosis Skin skin turgor normal and no jaundice Skin Narrative: See above n Neuro oriented x3, CN's II-XII intact bilaterally, moves all extremities and no focal motor deficits Speech: speech normal Psych affect normal Psych Narrative: Very pleasant Weight / BMI Weight Weight: 126.354 kg Body Mass Index (BMI) 42.3 ABG / Lab / Microbiology Data Result Diagrams: 09/11/22 06:20 09/12/22 05:50 Laboratory: Laboratory Results - last 24 hr 09/11/22 14:20: Vancomycin Trough 18.0 H 09/12/22 05:50: Sodium 140, Potassium 3.9, Chloride 112 H, Carbon Dioxide 24.0, Anion Gap 4 L, BUN 8, Creatinine 0.77, Estim Creat Clear Calc 134.48, Est GFR (MDRD) Af Amer 152, Est GFR (MDRD) Non-Af 126, BUN/Creatinine Ratio 10.4, Glucose 86, Calcium 8.4 L Microbiology: Microbiology 09/10/22 10:05 Discharge - No Site/Description Given Gram Stain - Final 09/10/22 10:05 Discharge - No Site/Description Given Wound Culture - Final No growth aerobically. 09/10/22 11:00 Blood Culture (Wb) - Left Hand Blood Culture - Preliminary No growth in 48 hours. 09/10/22 10:10 Blood Culture (Wb) - Anticubital Right Blood Culture - Preliminary No growth in 48 hours. D/C Instructions Discharge Diet: No restrictions Discharge Activity: May Shower, Use Crutches (As needed) and - (Keep left leg up as much as possible until swelling has resolved) Meaningful Use Info Meaningful Use Diagnoses (Choose all that apply): None applicable Discharge Plan Admission Admit Date/Time: 09/10/22 11:37 Primary Reason for Your Visit: Left leg pain/swelling/redness Attending Provider: Shiloh Billings Primary Care Provider: Care Diane Quick Primary Instructions Additional Instructions / Restrictions: 1. Keep left leg elevated as much as possible until swelling resolves 2. Follow-up in the wound center as instructed 3. Highly recommend establishing at the [facility] -Please call tomorrow 09/13/2022 to make an appointment to be seen within the next week 4. Keep leg dressed as instructed by Mariam from wound care 5. Clean daily with soap and water and avoid anything topical to be placed on leg unless instructed otherwise by wound center Discharge Orders/Prescriptions Prescriptions: New levofloxacin 750 mg tablet 750 mg PO Q24H Qty: 7 0RF Continued acetaminophen [Tylenol] 325 mg Tablet 650 mg PO Q4H PRN (Reason: Pain) ibuprofen 200 mg Tablet 400 mg PO Q6H PRN (Reason: Pain) Referrals / Follow Up: [facility] [Non-Staff] - Within 1 Week (call tomorrow and make appt to be seen next week) Care Physician,Diane Primary [Primary Care Provider] - Disposition Disposition (needs filled in before D/C Order can be placed): Home, Self Care Charges/Coding Visit Charges Inpatient E&M: 78522 Disch Hosp >30min
--- NOTE | 2022-09-12 11:56 | PHA.DC.MC ---
Pharmacy Service has performed discharge medication reconciliation and counseling for this patient. 1. LEVOFLOXACIN 750MG PO DAILY X 7 DAYS The patient's discharge medication list was reviewed for discrepancies and discrepancies were resolved. Home Medications acetaminophen 325 mg tablet (Tylenol) 650 mg PO Q4H PRN Pain 09/10/22 ibuprofen 200 mg tablet 400 mg PO Q6H PRN Pain 09/10/22 levofloxacin 750 mg tablet 750 mg PO Q24H #7 tabs 09/12/22 The patient was counseled on the following discharge medications and changes in medications for homegoing were reviewed. The Reason for Use, instructions for use, and potential side effects were reviewed for all new medications. The patient's questions regarding all of their medications were answered. The patient was able to verbally demonstrate an understanding of their discharge medications. Patient counseled by pharmacy technician instructorYoseph.
--- NOTE | 2022-09-12 12:08 | CASEMGMT ---
RN CM: Per Kalin at [facility], pt's cost for prescription is $15.08. This RN CM to pt's bedside and pt confirms he can cover this cost and denies needs for prescription assistance at this time. Pt denies any additional discharge needs. More Thompson RN CM
[2022-09-12 12:15] VITALS: BP 137/95; PULSE 56; RESP 18; TEMP 36.5; O2SAT 100
== END 2022-09-12 12:25 | disposition home or self-care (01) | DRG 603 ==
LOC: ED 09:00 → MS3 11:11
PROVIDERS: Admitting Provider Internal Medicine; Emergency Provider Student in an Organized Health Care Education/Training Program; Visit Provider Internal Medicine
DX: L03.116 Cellulitis of left lower limb (principal); Z68.41 Body mass index [BMI] 40.0-44.9, adult; E66.01 Morbid (severe) obesity due to excess calories; E87.6 Hypokalemia; K21.9 Gastro-esophageal reflux disease without esophagitis; F17.210 Nicotine dependence, cigarettes, uncomplicated; R07.9 Chest pain, unspecified; R06.02 Shortness of breath; R73.9 Hyperglycemia, unspecified; R59.0 Localized enlarged lymph nodes
CPT/HCPCS: 36415; 71045; 73590; 73701; 80048; 80053; 80202; 83036; 83735; 84100; 84443; 84484; 85025; 85652; 86140; 87040; 87070; 87205; 87641; 93005; 99284; J7030; J7040; Q9967; A4216; J2405

== ENCOUNTER 2022-11-05 14:17 | Emergency (ER) | payer SELFPAY ==
[2022-11-05 14:18] VITALS: BP 150/115; PULSE 115; RESP 20; TEMP 36.1; O2SAT 98; BMI 41.8
== END 2022-11-05 17:52 | disposition left against medical advice (07) ==
LOC: ED 17:52
DX: Z53.21 Procedure and treatment not carried out due to patient leaving prior to being seen by health care provider (principal)